=== PATIENT | male | born 1985 | race Two or more races ===

== ENCOUNTER 2024-07-07 10:34 | Emergency (ER) | payer OTHER ==
[2024-07-07] MEDS: Acetaminophen 500 MG Tab PO ONE (10:57)
[2024-07-07] MEDS: Lidocaine 1% 10 ML MDV INFILT ONE (10:57)
[2024-07-07] MEDS: Ketorolac 30 MG/ML SDV IM ONE (10:57)
[2024-07-07] MEDS: Diphtheria,Pertussis(Acell),Tetanus Vaccine 0.5 ML Syringe IM ONE (10:59)
[2024-07-07] MEDS: Bacitracin Oint 1 GM U/D Packet TOP ONE (13:24)
== END 2024-07-07 13:25 | disposition home or self-care (01) ==
LOC: MW.ED 10:34
DX: S67.192A Crushing injury of right middle finger, initial encounter (principal); Z91.013 Allergy to seafood; Z23 Encounter for immunization; W23.0XXA Caught, crushed, jammed, or pinched between moving objects, initial encounter
CPT/HCPCS: 12002; 73120; 90471; 90715; 96372; 99283; A9270; J1885; J3490

== ENCOUNTER 2024-07-15 14:13 | Emergency (ER) | payer OTHER | END 2024-07-15 14:42 | disposition home or self-care (01) | LOC: MW.ED 14:13 | DX: S67.192D Crushing injury of right middle finger, subsequent encounter (principal); W23.0XXD Caught, crushed, jammed, or pinched between moving objects, subsequent encounter | CPT/HCPCS: 99281 ==